=== PATIENT | male | born 1945 | race Caucasian/White ===

== ENCOUNTER 2019-06-26 19:49 | Emergency (ER) | payer MEDICARE, BC ==
[~2019-06-26] VITALS: Ht 170.2 cm; Wt 60.9 kg
[~2019-06-26 19:49] MED LIST: LIDOcaine 1% W/epiNEPHrine 1:100,000 20ml vial ONE
--- NOTE | 2019-06-26 20:50 | NUR ---
pt out to [place] via [place] with RN
--- NOTE | 2019-06-26 21:06 | NUR ---
DR GARCIA AT BEDSIDE WITH PT
[2019-06-26 21:15] VITALS: BP 140/70
[2019-06-26 21:27] LABS: PARTIAL THROMBOPLASTIN TIME 25 SECONDS (22-32)
[2019-06-26 21:30] LABS: BASOPHILS % (AUTO) 0.6 % (0-1); EOSINOPHILS # (AUTO) 0.2 X10'3 (0-0.9); EOSINOPHILS % (AUTO) 2.6 % (0-6); HEMATOCRIT 42.8 % (42.0-52.0); HEMOGLOBIN 14.4 g/dl (14.0-17.9); LYMPHOCYTES # (AUTO) 1.8 X10'3 (1.1-4.8); LYMPHOCYTES % (AUTO) 23.3 % (21-51); MEAN CORPUSCULAR HEMOGLOBIN 32.9 PG (27.0-31.0); MEAN CORPUSCULAR HGB CONC 33.7 g/dL (33.0-36.5); MEAN CORPUSCULAR VOLUME 97.8 FL (78-98); MEAN PLATELET VOLUME 8.3 FL (7.4-10.4); MONOCYTES # (AUTO) 0.7 X10'3 (0-0.9); MONOCYTES % (AUTO) 8.7 % (2-12); NEUTROPHILS # (AUTO) 5.1 X10'3 (1.8-7.7); NEUTROPHILS % (AUTO) 64.8 % (42-75); PLATELET COUNT 216 X10'3 (140-440); RED BLOOD COUNT 4.38 X10'6 (4.70-6.10); RED CELL DISTRIBUTION WIDTH 14.3 % (11.5-14.5); WHITE BLOOD COUNT 7.9 X10'3 (4.5-11.0)
[2019-06-26 21:36] LABS: ALANINE AMINOTRANSFERASE 67 U/L (12-78); ALBUMIN 3.8 G/DL (3.4-5.0); ALKALINE PHOSPHATASE 81 IU/L (46-116); ANION GAP 9 (8-16); ASPARTATE AMINO TRANSFERASE 60 U/L (10-37); BILIRUBIN,TOTAL 0.5 MG/DL (0.1-1.0); BLOOD UREA NITROGEN 25 MG/DL (7-18); BUN/CREATININE RATIO 19.7 (5.4-32.0); CALCIUM 9.6 MG/DL (8.5-10.1); CHLORIDE 108 MMOL/L (99-107); CREATININE 1.27 MG/DL (0.60-1.10); GLUCOSE 96 MG/DL (70-104); POTASSIUM 4.3 MMOL/L (3.5-5.1); SODIUM 143 MMOL/L (135-145); TOTAL CARBON DIOXIDE 26.3 MMOL/L (24-32); TOTAL PROTEIN 7.7 G/DL (6.4-8.2); eGFR 55 ML/MIN
[2019-06-26 21:48] LABS: TROPONIN I < 0.04 NG/ML (0.0-0.05)
[2019-06-26] MEDS ORDERED: bacitracin 15gm ointment TP ONE (21:50)
[2019-06-26 23:04] LABS: TOTAL CELLS COUNTED 100
[2019-06-26 23:05] LABS: PLATELET ESTIMATE NORMAL
== END 2019-06-26 22:13 | disposition home or self-care (01) ==
LOC: ER 19:51
DX: S01.81XA Laceration without foreign body of other part of head, initial encounter (principal); W22.09XA Striking against other stationary object, initial encounter; Y93.01 Activity, walking, marching and hiking; Y92.89 Other specified places as the place of occurrence of the external cause; Y99.8 Other external cause status
CPT/HCPCS: 12013; 36415; 70450; 72125; 80053; 84484; 85007; 85025; 85610; 85730; 99284

== ENCOUNTER 2021-02-18 17:57 | Emergency (ER) | payer MEDICARE, BC ==
[~2021-02-18] VITALS: Ht 170.2 cm; Wt 64.5 kg
[2021-02-18] MEDS ORDERED: LIDOcaine 1% W/epiNEPHrine 1:200,000 10ml vial IJ ONE (19:50)
[2021-02-18] MEDS ORDERED: tranexamic acid inj. 2,000 MG in normal saline 100ml IV soln 80 ML IPL ONE (19:50)
[2021-02-18] MEDS ORDERED: acetaminophen 325mg tablet PO ONE (19:55)
[2021-02-18] MEDS ORDERED: tranexamic acid 100mg/ml inj. IV ONE (20:00)
[2021-02-18] MEDS ORDERED: tranexamic acid 100mg/ml inj. TP ONE (20:00)
[2021-02-18 21:05] VITALS: BP 145/75
== END 2021-02-18 21:07 | disposition home or self-care (01) ==
LOC: ER 17:57
DX: S61.012A Laceration without foreign body of left thumb without damage to nail, initial encounter (principal); W26.8XXA Contact with other sharp object(s), not elsewhere classified, initial encounter; Y93.89 Activity, other specified; Y92.89 Other specified places as the place of occurrence of the external cause; Y99.8 Other external cause status
CPT/HCPCS: 12002; 99282